=== PATIENT | female | born 1955 | race Caucasian/White ===

== ENCOUNTER 2017-10-23 10:32 | Emergency (ER) | payer SELFPAY ==
[~2017-10-23 10:32] MED LIST: EPINEPHrine SYRINGE 1 MG/10 ML SYRINGE
[2017-10-23 11:18] LABS: BILIRUBIN,URINE SMALL (NEG); CLARITY,URINE CLOUDY; COLOR,URINE AMBER; GLUCOSE,URINE NEGATIVE (NEG); NITRITE,URINE NEGATIVE (NEG); PH,URINE 5.5; PROTEIN,URINE >=300 mg/dL (NEG-TRACE)
[2017-10-23 11:25] LABS: BACTERIA,URINE FEW /HPF (0-FEW); SQUAMOUS EPITHELIAL CELL,UR FEW /LPF
[2017-10-23] MEDS: IV NORMAL SALINE 1000ML BAG 1,000 ML IV ×2 (11:29→12:45)
[2017-10-23 11:30] LABS: AGAP ISTAT 19 mmol/L (6-14); AMPHETAMINE/METHAMPHETAMINE NEG (NEG); BARBITURATES NEG (NEG); BENZODIAZEPINES NEG (NEG); BUN ISTAT 41 mg/dL (8-26); CANNABINOIDS NEG (NEG); CHLORIDE ISTAT 102 mmol/L (98-110); COCAINE NEG (NEG); CREATININE ISTAT 3.8 mg/dL (0.5-1.4); ETHANOL, URINE NEG (NEG); GLUCOSE ISTAT 245 mg/dL (70-99); HEMATOCRIT ISTAT 32 % (36-40); HEMOGLOBIN ISTAT 10.9 g/dL (12-15); ION CA ISTAT 1.05 mmol/L (1.13-1.32); METHADONE NEG (NEG); OPIATES NEG (NEG); PHENCYCLIDINE NEG (NEG); POTASSIUM ISTAT 2.8 mmol/L (3.5-5.0); SODIUM ISTAT 137 mmol/L (135-145); TOT CO2 ISTAT 21 mmol/L (23-32)
[2017-10-23 11:32] LABS: BASO # 0.2 x10^3/uL (0.0-0.2); BASO % 1 % (0-3); EOS % 0 % (0-3); HEMATOCRIT 33.1 % (36.0-47.0); HEMOGLOBIN 11.1 g/dL (12.0-15.5); LYMPH # 1.6 x10^3/uL (1.0-4.8); LYMPH % 4 % (24-48); MEAN CORPUSCULAR HEMOGLOBIN 30 pg (25-35); MEAN CORPUSCULAR HGB CONC 34 g/dL (31-37); MEAN CORPUSCULAR VOLUME 90 fL (79-100); MONO # 0.9 x10^3/uL (0.0-1.1); MONO % 3 % (0-9); NEUT # 33.3 x10^3uL (1.8-7.7); NEUT % 92 % (31-73); PLATELET COUNT 487 x10^3/uL (140-400); RED BLOOD COUNT 3.66 x10^6/uL (3.50-5.40); RED CELL DISTRIBUTION WIDTH 12.6 % (11.5-14.5)
[2017-10-23 11:34] LABS: ADD MAN DIFF? YES
[2017-10-23] MEDS: fentaNYL PF VIAL 100 MCG/2 ML VIAL IV (11:35)
[2017-10-23] MEDS: POTASSIUM CHLORIDE 20 MEQ TABLET.ER. PO (11:43)
[2017-10-23] MEDS ORDERED: PIP/TAZO PER PHARMACY MC (12:00)
[2017-10-23 12:03] LABS: % BANDS 7 % (0-9); % BASOS 1 % (0-3); % LYMPHS 5 % (24-48); % MONOS 1 % (0-10); % SEGS 86 % (35-66)
[2017-10-23 12:04] LABS: PLATELET CLUMP PRESENT; PLT ESTIMATE INCREASED (ADEQUATE)
[2017-10-23 12:15] LABS: LACTIC ACID 4.1 mmol/L (0.4-2.0)
[2017-10-23] MEDS ORDERED: IV NORMAL SALINE 1000ML BAG 1,000 ML IV (12:30)
[2017-10-23] MEDS: PIPERACILLIN/TAZOBACTAM 3.375 GM in IV NORMAL SALINE 50ML 50 ML IV (12:51)
[2017-10-23] MEDS: MORPHINE SULFATE 4 MG/ML DISP.SYRIN. IV (13:09)
[2017-10-23] MEDS ORDERED: CONTRAST GIVEN MC (13:15)
[2017-10-23] MEDS: VANCOMYCIN 1.5 GM in IV DEXTROSE 5 %-0.2 % NACL 500 ML IV (13:26)
[2017-10-23] MEDS: VANCOMYCIN PER PHARMACY MC (13:40)
[2017-10-23] MEDS: IOHEXOL 300 MG/ML 100ML VIAL. IV (13:45)
[2017-10-23] MEDS ORDERED: PIPERACILLIN/TAZOBACTAM 2.25 GM in IV NORMAL SALINE 100ML 100 ML IV (18:00)
[2017-10-23] MEDS ORDERED: LACTOBACILLUS RHAMNOSUS GG 1 CAPSULE. PO (21:00)
[2017-10-25] MEDS ORDERED: VANCOMYCIN RANDOM LEVEL. MC (13:00)
== END 2017-10-23 18:00 | disposition expired ==
LOC: ER 10:32 → 1 WEST ICU 12:00 → ER 18:00
DX: M48.56XA Collapsed vertebra, not elsewhere classified, lumbar region, initial encounter for fracture (principal); A41.9 Sepsis, unspecified organism; N17.9 Acute kidney failure, unspecified; R65.20 Severe sepsis without septic shock; I71.01 Dissection of thoracic aorta; J90 Pleural effusion, not elsewhere classified; E66.9 Obesity, unspecified; Z90.49 Acquired absence of other specified parts of digestive tract; Z90.710 Acquired absence of both cervix and uterus; Z96.649 Presence of unspecified artificial hip joint; Z87.891 Personal history of nicotine dependence; Z91.048 Other nonmedicinal substance allergy status; Z91.040 Latex allergy status; Z88.6 Allergy status to analgesic agent; Z68.35 Body mass index [BMI] 35.0-35.9, adult; Z88.1 Allergy status to other antibiotic agents
CPT/HCPCS: 31500; 36415; 71275; 74174; 74176; 80047; 80307; 81001; 83605; 85007; 85025; 86850; 86900; 86901; 87040; 87086; 92950; 96361; 96365; 96367; 96375; 99291-25; 99292; J0171; J2060; J2270; J2543; J3010; J3370; J7030; Q9967